=== PATIENT | male | born 1995 | race American Indian/Alaskan Native ===

== ENCOUNTER 2021-05-04 01:08 | Emergency (ER) | payer SELFPAY ==
[2021-05-04] MEDS ORDERED: LIDOCAINE (1%) 10 MG/1 ML VIAL 20 ML MDV INFILTRATI ONE (02:06)
--- NOTE | 2021-05-04 02:29 | Emergency Department Report ---
ED General Adult HPI - General Chief complaint: Extremity Injury, Upper Stated complaint: SPRANG FINGER Time Seen by Provider: 05/04/21 01:56 Source: patient Mode of arrival: Ambulatory Limitations: No Limitations - History of Present Illness Initial comments: right thumb janelle [place] -: Sudden, hour(s) Location: right, upper extremity Severity scale (0 -10): 4 Quality: aching Consistency: constant Improves with: none, immobilization - Related Data Previous Rx's Medication Instructions Recorded Last Taken Type Ketorolac [Toradol] 10 mg PO Q6H PRN #10 05/04/21 Unknown Rx cephALEXin [Keflex] 500 mg PO Q12HR #14 cap 05/04/21 Unknown Rx Allergies Allergy/AdvReac Type Severity Reaction Status Date / Time No Known Allergies Allergy Unverified 05/04/21 01:45 ED Review of Systems ROS: Stated complaint: SPRANG FINGER Other details as noted in HPI Constitutional: denies: chills, fever Eyes: denies: eye pain, eye discharge, vision change ENT: denies: ear pain, throat pain Respiratory: denies: cough, shortness of breath, wheezing Cardiovascular: denies: chest pain, palpitations Endocrine: no symptoms reported Gastrointestinal: denies: abdominal pain, nausea, diarrhea Genitourinary: denies: urgency, dysuria Musculoskeletal: denies: back pain, joint swelling, arthralgia Skin: denies: rash, lesions Neurological: denies: headache, weakness, paresthesias Psychiatric: denies: anxiety, depression Hematological/Lymphatic: denies: easy bleeding, easy bruising ED Past Medical Hx - Past Medical History Previous Medical History?: No - Surgical History Past Surgical History?: No - Medications Home Medications: Home Medications Medication Instructions Recorded Confirmed Last Taken Type Ketorolac [Toradol] 10 mg PO Q6H PRN #10 05/04/21 Unknown Rx cephALEXin [Keflex] 500 mg PO Q12HR #14 cap 05/04/21 Unknown Rx ED Physical Exam - General Limitations: No Limitations General appearance: alert, in no apparent distress - Head Head exam: Present: atraumatic, normocephalic - Eye Eye exam: Present: normal appearance - ENT ENT exam: Present: mucous membranes moist - Neck Neck exam: Present: normal inspection - Respiratory Respiratory exam: Present: normal lung sounds bilaterally. Absent: respiratory distress - Cardiovascular Cardiovascular Exam: Present: regular rate, normal rhythm. Absent: systolic murmur, diastolic murmur, rubs, gallop - GI/Abdominal GI/Abdominal exam: Present: soft, normal bowel sounds - Rectal Rectal exam: Present: deferred - Extremities Exam Extremities exam: Present: normal inspection - Expanded Upper Extremity Exam Right General: Present: nail injury (#) - Back Exam Back exam: Present: normal inspection - Neurological Exam Neurological exam: Present: alert, oriented X3 - Psychiatric Psychiatric exam: Present: normal affect, normal mood - Skin Skin exam: Present: warm, dry, intact, normal color. Absent: rash ED Course Vital Signs 05/04/21 01:45 Temperature 98.3 F Pulse Rate 63 Respiratory 16 Rate Blood Pressure 136/65 O2 Sat by Pulse 98 Oximetry - I & D Right Finger Type of Procedure: Simple Site: right thumb hematoma Blade Size: 18 g needke I & D Procedure: sterile dressing applied Critical care attestation.: If time is entered above; I have spent that time in minutes in the direct care of this critically ill patient, excluding procedure time. ED Disposition Clinical Impression: Subungual hematoma of finger Disposition: HOME / SELF CARE / HOMELESS Is pt being admited?: No Does the pt Need Aspirin: No Condition: Stable Instructions: Subungual Hematoma, [id number]
[2021-05-04 03:53] VITALS: BP 103/67
== END 2021-05-04 03:51 | disposition home or self-care (01) ==
LOC: ED 01:08
DX: S60.011A Contusion of right thumb without damage to nail, initial encounter (principal); Z79.899 Other long term (current) drug therapy; W22.8XXA Striking against or struck by other objects, initial encounter; Y93.89 Activity, other specified; Y92.89 Other specified places as the place of occurrence of the external cause; Y99.8 Other external cause status
CPT/HCPCS: 11740; 99282; J3490

== ENCOUNTER 2021-05-11 19:46 | Emergency (ER) | payer SELFPAY ==
[2021-05-11] MEDS ORDERED: LIDOCAINE (1%) 10 MG/1 ML VIAL 20 ML MDV INFILTRATI ONE (21:40)
[2021-05-11 21:41] VITALS: BP 140/86
--- NOTE | 2021-05-11 21:41 | Emergency Department Report ---
Upper Extremity - HPI Stated Complaint: FINGER INFECTED Time Seen by Provider: 05/11/21 21:39 Upper Extremity: Right Thumb Other History: Patient presents with an infection involving his finger. He sustained a crush injury previously. Patient been seen here. The subungual hematoma was drained. He was placed on antibiotics. Since that time, he has had increasing swelling. There has been some whitish discharge noted. He was concerned that it might be infected despite the antibiotics. He came here for evaluation and treatment. Patient is only complaining of localized pain. He denies any other injury recently. He has no numbness or tingling in the digit itself. He states that he did complete the antibiotics. Immunizations are up-to-date. Pain is worse with any kind of palpation. He is trying to do soaks at home in addition. ED Review of Systems ROS: Stated complaint: FINGER INFECTED Other details as noted in HPI Comment: All other systems reviewed and negative Constitutional: denies: fever Eyes: denies: eye pain ENT: denies: throat pain Respiratory: denies: cough Cardiovascular: denies: chest pain Endocrine: denies: unexplained weight loss Gastrointestinal: denies: abdominal pain Genitourinary: denies: dysuria Musculoskeletal: as per HPI Skin: denies: rash Neurological: denies: numbness Hematological/Lymphatic: denies: easy bruising ED Past Medical Hx - Past Medical History Previous Medical History?: No - Family History Family history: no significant - Medications Home Medications: Home Medications Medication Instructions Recorded Confirmed Last Taken Type Ketorolac [Toradol] 10 mg PO Q6H PRN #10 05/04/21 Unknown Rx cephALEXin [Keflex] 500 mg PO Q12HR #14 cap 05/04/21 Unknown Rx Upper Extremity Exam - Exam General: Vital signs noted. No distress. Alert and acting appropriately. Head and Torso: No HEENT Abnormality (Normocephalic/atraumatic. PERRL. EOMI), No Neck Tenderness, No Chest/Lungs Abnormality (Regular rate and rhythm. Clear bilaterally) Shoulder Exam: Yes Normal Range of Motion in Shoulder Arm Exam: No Arm Deformity Elbow: Yes Normal Range of Motion in Elbow Forearm: No Forearm Deformity Wrist: Yes Normal ROM in Wrist Hand: Yes Digit Tenderness (Mild tenderness over the right thumb distally), Yes Normal ROM in Digit(s), No Hand Tenderness, No Hand Deformity, No Digit(s) Deformity, No Tendon Dysfunction ED Course - Reevaluation(s) Reevaluation #1: 05/11/21 21:41 Lidocaine ordered. Old records noted. Reevaluation #2: 05/11/21 21:50 Lidocaine injected. - I & D Upper Finger Type of Procedure: Simple Site: 1 cm Blade Size: 11 I & D Procedure: betadine prep, sterile dressing applied Progress: The paronychia was drained using an 11 blade scalpel. There was immediate decompression of the swelling. - Nerve Block Consent Obtained: verbal consent Time Out Performed: No Local Anesthetic Used: Lidocaine 1% Amount of anesthesia used: 3 Side: right Nerve Blocks: digital Procedure Successful: Yes Complications: none Patient Tolerated Procedure: well, no complications ED Medical Decision Making - Medical Decision Making Patient presented secondary to a wound infection. He has evidence of a paronychia that was drained. He did not require further management. He does not have any other injury. There is no other rash. He does not have systemic symptoms that would be concerning for sepsis. Critical Care Time: No Critical care attestation.: If time is entered above; I have spent that time in minutes in the direct care of this critically ill patient, excluding procedure time. ED Disposition Clinical Impression: Paronychia Disposition: 01 HOME / SELF CARE / HOMELESS Is pt being admited?: No Condition: Stable Instructions: Paronychia Additional Instructions: ELEVATED AND CONTINUE WARM SOAKS. RETURN FOR PROBLEMS. Referrals: PRIMARY CARE, [Primary Care Provider] - 3-5 Days
== END 2021-05-11 22:50 | disposition home or self-care (01) ==
LOC: ED 19:46
DX: L03.011 Cellulitis of right finger (principal)
CPT/HCPCS: 99282